=== PATIENT | female | born 1990 | race African-American/Black ===

== ENCOUNTER 2018-11-21 05:34 | Observation (INO) | payer OTHER ==
[2016-12-15 07:00] VITALS: BP 131/77
[~2018-11-21] VITALS: Ht 149.9 cm; Wt 100.7 kg
[2018-11-21 06:03] LABS: BILIRUBIN,URINE NEGATIVE (NEG); CLARITY,URINE CLEAR; COLOR,URINE YELLOW; NITRITE,URINE NEGATIVE (NEG); PH,URINE 7.5; PROTEIN,URINE NEGATIVE (NEG-TRACE)
[2018-11-21 06:09] LABS: BARBITURATES NEG (NEG); BENZODIAZEPINES NEG (NEG); CANNABINOIDS NEG (NEG); COCAINE NEG (NEG); METHADONE NEG (NEG); OPIATES NEG (NEG); PHENCYCLIDINE NEG (NEG)
[2018-11-21 06:11] LABS: BACTERIA,URINE FEW /HPF (0-FEW); RBC,URINE TNTC /HPF (0-2); SQUAMOUS EPITHELIAL CELL,UR MANY /LPF
[2018-11-21 06:12] LABS: AMPHETAMINE/METHAMPHETAMINE NEG (NEG)
[2018-11-21] MEDS: IV RINGERS,LACTATED 1000ML 1,000 ML IV SCH ×2 (06:21→08:08)
[2018-11-21 06:48] LABS: BASO % 0 % (0-3); EOS # 0.1 x10^3/uL (0.0-0.7); EOS % 1 % (0-3); HEMATOCRIT 28.5 % (36.0-47.0); HEMOGLOBIN 9.3 g/dL (12.0-15.5); LYMPH # 1.1 x10^3/uL (1.0-4.8); LYMPH % 12 % (24-48); MEAN CORPUSCULAR HEMOGLOBIN 26 pg (25-35); MEAN CORPUSCULAR HGB CONC 33 g/dL (31-37); MEAN CORPUSCULAR VOLUME 81 fL (79-100); MONO # 0.7 x10^3/uL (0.0-1.1); MONO % 8 % (0-9); NEUT % 78 % (31-73); PLATELET COUNT 234 x10^3/uL (140-400); RED BLOOD COUNT 3.52 x10^6/uL (3.50-5.40); RED CELL DISTRIBUTION WIDTH 14.8 % (11.5-14.5); WHITE BLOOD COUNT 8.9 x10^3/uL (4.0-11.0)
[2018-11-21 06:55] LABS: CALCIUM 8.4 mg/dL (8.5-10.1); CREATININE 0.8 mg/dL (0.6-1.0); GFR 101.9; POTASSIUM 3.5 mmol/L (3.5-5.1)
[2018-11-21] MEDS ORDERED: hydrOXYzine PAMOATE 25 MG CAPSULE PO ONE (07:00)
[2018-11-21 07:01] LABS: ALBUMIN 2.5 g/dL (3.4-5.0); ALBUMIN/GLOBULIN RATIO 0.6 (1.0-1.7); TOTAL BILIRUBIN 0.4 mg/dL (0.2-1.0); TOTAL PROTEIN 6.4 g/dL (6.4-8.2)
[2018-11-21] MEDS ORDERED: PANTOPRAZOLE 40 MG TABLET.DR. PO ONE (08:00)
[2018-11-21] MEDS ORDERED: HYDROcodone/APAP 5/325MG 1 TAB TABLET PO PRN ×3 (08:00→09:15)
--- NOTE | 2018-11-21 08:14 | RAD ---
RENAL COMPLETE BILATERAL History: Left flank and abdominal pain, back pain, Comparison: None. Findings: Multiple sonographic images of the kidneys and retroperitoneal structures are submitted. Right kidney measured 13.2 x 7 x 5.3 cm, no hydronephrosis. Left kidney measured 13.3 x 6 x 8.5 cm, mild left hydronephrosis. No obvious abnormality is demonstrated of the gallbladder. Incidental note is made of a dilated gallbladder up to 11 cm in longitudinal dimension. There is a large gallstone closer to the gallbladder neck about 2.1 m in size. Impression: 1. There is mild left hydronephrosis. 2. There is large gallstone near the gallbladder neck, somewhat dilated gallbladder. Electronically signed by: Keith Jaimes MD (11/21/2018 8:11 AM) [facility]
[2018-11-21] MEDS ORDERED: fentaNYL PF VIAL 100 MCG/2 ML VIAL IV ONE (09:00)
--- NOTE | 2018-11-21 09:09 | PDOC2 ---
GIAN HERMAN Santhosh [employer] 11/21/18 0909: CONSULT Date of Consult Date of Consult DATE: 11/21/18 TIME: 09:06 Reason for Consult Reason for Consult: gallstones Referring Physician Referring Physician: Dr Jurado Identification/Chief Complaint Chief Complaint abdominal pain Source Source: Chart review, Patient History of Present Illness Reason for Visit: 1 week hx of abdominal pain, upper abdomen, wraps to left flank. Has been worsening over the week. Associated nausea. No similar symptoms in past 32 weeks Past Medical History Cardiovascular: No pertinent hx Pulmonary: No pertinent hx GI: No pertinent hx Heme/Onc: No pertinent hx Hepatobiliary: No pertinent hx Psych: No pertinent hx Rheumatologic: No pertinent hx Infectious disease: No pertinent hx Renal/: No pertinent hx Endocrine: No pertinent hx Past Surgical History Past Surgical History: Family History Family History: Hypertension Social History No ALCOHOL: none Drugs: None Lives: Alone Current Medications Current Medications Current Medications Ringer's Solution 1,000 ml @ 125 mls/hr Q8H IV Last administered on 11/21/18at 08:08; Start 11/21/18 at 06:00 Hydroxyzine Pamoate (Vistaril) 50 mg 1X ONCE PO Last administered on 11/21/18at 06:44; Start 11/21/18 at 07:00; Stop 11/21/18 at 07:01; Status DC Pantoprazole Sodium (Protonix) 40 mg 1X ONCE PO Last administered on 11/21/18at 08:19; Start 11/21/18 at 08:00; Stop 11/21/18 at 08:10; Status DC Acetaminophen/ Hydrocodone Bitart (Lortab 5/325) 1 tab PRN Q6HRS PRN PO MODERATE PAIN Last administered on 11/21/18at 08:14; Start 11/21/18 at 08:00; Stop 11/21/18 at 08:55; Status DC Acetaminophen/ Hydrocodone Bitart (Lortab 5/325) Give as directed PRN Q6HRS PRN PO MODERATE PAIN; Start 11/21/18 at 09:00; Status UNV Fentanyl Citrate (Fentanyl 2ml Vial) 50 mcg 1X ONCE IV ; Start 11/21/18 at 09:00; Stop 11/21/18 at 09:01 Active Scripts Active No Active Prescriptions or Reported Medications Allergies Allergies: Coded Allergies: No Known Drug Allergies (Unverified , 12/12/16) ROS General: YES: Appetite (loss); No: Chills, Other (fevers) PSYCHOLOGICAL ROS: No: Anxiety, Depression Eyes: No Blurry vision, No Double vision HEENT: No: Heacaches, Sore Throat Hematological and Lymphatic: No: Bleeding Problems, Blood Clots Respiratory: No: Cough, Shortness of breath Cardiovascular: No Chest Pain, No Palpitations Gastrointestinal: Yes Other (see hpi) Genitourinary: No Dysuria, No Hematuria Musculoskeletal: No Joint Pain, No Muscle Pain Neurological: No Confusion, No Numbness/Tingling Skin: No Mole Changes, No Pruritus Physical Exam General: Alert, Oriented X3, Cooperative, No acute distress HEENT: PERRLA, Mucous membr. moist/pink Lungs: Clear to auscultation, Normal air movement Heart: Regular rate, Normal S1, Normal S2, No murmurs Abdomen: Soft, Other ( abdomen) Extremities: No clubbing, No cyanosis Skin: No rashes, No breakdown Neuro: Normal gait, Normal speech Psych/Mental Status: Mental status NL, Mood NL MUSCULOSKELETAL: No deformity, No swelling Vitals VITALS Vital Signs Date Time Temp Pulse Resp B/P (MAP) Pulse Ox O2 Delivery O2 Flow Rate FiO2 11/21/18 08:14 20 Room Air Labs Labs Laboratory Tests Test 11/21/18 05:55 11/21/18 06:40 Urine Collection Type Unknown Urine Color Yellow Urine Clarity Clear Urine pH 7.5 Urine Specific Trinity 1.025 Urine Protein Negative mg/dL (NEG-TRACE) Urine Glucose (UA) Negative mg/dL (NEG) Urine Ketones (Stick) Negative mg/dL (NEG) Urine Blood Moderate (NEG) Urine Nitrite Negative (NEG) Urine Bilirubin Negative (NEG) Urine Urobilinogen Dipstick 2.0 mg/dL (0.2 mg/dL) Urine Leukocyte Esterase Negative (NEG) Urine RBC Tntc /HPF (0-2) Urine WBC 1-4 /HPF (0-4) Urine Squamous Epithelial Cells Many /LPF Urine Bacteria Few /HPF (0-FEW) Urine Mucus Marked /LPF Urine Opiates Screen Neg (NEG) Urine Methadone Screen Neg (NEG) Urine Barbiturates Neg (NEG) Urine Phencyclidine Screen Neg (NEG) Urine Amphetamine/Methamphetamine Neg (NEG) Urine Benzodiazepines Screen Neg (NEG) Urine Cocaine Screen Neg (NEG) Urine Cannabinoids Screen Neg (NEG) Urine Ethyl Alcohol Neg (NEG) White Blood Count 8.9 x10^3/uL (4.0-11.0) Red Blood Count 3.52 x10^6/uL (3.50-5.40) Hemoglobin 9.3 g/dL (12.0-15.5) Hematocrit 28.5 % (36.0-47.0) Mean Corpuscular Volume 81 fL (79-100) Mean Corpuscular Hemoglobin 26 pg (25-35) Mean Corpuscular Hemoglobin Concent 33 g/dL (31-37) Red Cell Distribution Width 14.8 % (11.5-14.5) Platelet Count 234 x10^3/uL (140-400) Neutrophils (%) (Auto) 78 % (31-73) Lymphocytes (%) (Auto) 12 % (24-48) Monocytes (%) (Auto) 8 % (0-9) Eosinophils (%) (Auto) 1 % (0-3) Basophils (%) (Auto) 0 % (0-3) Neutrophils # (Auto) 7.0 x10^3uL (1.8-7.7) Lymphocytes # (Auto) 1.1 x10^3/uL (1.0-4.8) Monocytes # (Auto) 0.7 x10^3/uL (0.0-1.1) Eosinophils # (Auto) 0.1 x10^3/uL (0.0-0.7) Basophils # (Auto) 0.0 x10^3/uL (0.0-0.2) Sodium Level 137 mmol/L (136-145) Potassium Level 3.5 mmol/L (3.5-5.1) Chloride Level 103 mmol/L (98-107) Carbon Dioxide Level 24 mmol/L (21-32) Anion Gap 10 (6-14) Blood Urea Nitrogen 5 mg/dL (7-20) Creatinine 0.8 mg/dL (0.6-1.0) Estimated GFR (Cockcroft-Gault) 101.9 BUN/Creatinine Ratio 6 (6-20) Glucose Level 91 mg/dL (70-99) Calcium Level 8.4 mg/dL (8.5-10.1) Total Bilirubin 0.4 mg/dL (0.2-1.0) Aspartate Amino Transf (AST/SGOT) 25 U/L (15-37) Alanine Aminotransferase (ALT/SGPT) 31 U/L (14-59) Alkaline Phosphatase 99 U/L (46-116) Total Protein 6.4 g/dL (6.4-8.2) Albumin 2.5 g/dL (3.4-5.0) Albumin/Globulin Ratio 0.6 (1.0-1.7) Laboratory Tests Test 11/21/18 05:55 11/21/18 06:40 Urine Collection Type Unknown Urine Color Yellow Urine Clarity Clear Urine pH 7.5 Urine Specific Trinity 1.025 Urine Protein Negative mg/dL (NEG-TRACE) Urine Glucose (UA) Negative mg/dL (NEG) Urine Ketones (Stick) Negative mg/dL (NEG) Urine Blood Moderate (NEG) Urine Nitrite Negative (NEG) Urine Bilirubin Negative (NEG) Urine Urobilinogen Dipstick 2.0 mg/dL (0.2 mg/dL) Urine Leukocyte Esterase Negative (NEG) Urine RBC Tntc /HPF (0-2) Urine WBC 1-4 /HPF (0-4) Urine Squamous Epithelial Cells Many /LPF Urine Bacteria Few /HPF (0-FEW) Urine Mucus Marked /LPF Urine Opiates Screen Neg (NEG) Urine Methadone Screen Neg (NEG) Urine Barbiturates Neg (NEG) Urine Phencyclidine Screen Neg (NEG) Urine Amphetamine/Methamphetamine Neg (NEG) Urine Benzodiazepines Screen Neg (NEG) Urine Cocaine Screen Neg (NEG) Urine Cannabinoids Screen Neg (NEG) Urine Ethyl Alcohol Neg (NEG) White Blood Count 8.9 x10^3/uL (4.0-11.0) Red Blood Count 3.52 x10^6/uL (3.50-5.40) Hemoglobin 9.3 g/dL (12.0-15.5) Hematocrit 28.5 % (36.0-47.0) Mean Corpuscular Volume 81 fL (79-100) Mean Corpuscular Hemoglobin 26 pg (25-35) Mean Corpuscular Hemoglobin Concent 33 g/dL (31-37) Red Cell Distribution Width 14.8 % (11.5-14.5) Platelet Count 234 x10^3/uL (140-400) Neutrophils (%) (Auto) 78 % (31-73) Lymphocytes (%) (Auto) 12 % (24-48) Monocytes (%) (Auto) 8 % (0-9) Eosinophils (%) (Auto) 1 % (0-3) Basophils (%) (Auto) 0 % (0-3) Neutrophils # (Auto) 7.0 x10^3uL (1.8-7.7) Lymphocytes # (Auto) 1.1 x10^3/uL (1.0-4.8) Monocytes # (Auto) 0.7 x10^3/uL (0.0-1.1) Eosinophils # (Auto) 0.1 x10^3/uL (0.0-0.7) Basophils # (Auto) 0.0 x10^3/uL (0.0-0.2) Sodium Level 137 mmol/L (136-145) Potassium Level 3.5 mmol/L (3.5-5.1) Chloride Level 103 mmol/L (98-107) Carbon Dioxide Level 24 mmol/L (21-32) Anion Gap 10 (6-14) Blood Urea Nitrogen 5 mg/dL (7-20) Creatinine 0.8 mg/dL (0.6-1.0) Estimated GFR (Cockcroft-Gault) 101.9 BUN/Creatinine Ratio 6 (6-20) Glucose Level 91 mg/dL (70-99) Calcium Level 8.4 mg/dL (8.5-10.1) Total Bilirubin 0.4 mg/dL (0.2-1.0) Aspartate Amino Transf (AST/SGOT) 25 U/L (15-37) Alanine Aminotransferase (ALT/SGPT) 31 U/L (14-59) Alkaline Phosphatase 99 U/L (46-116) Total Protein 6.4 g/dL (6.4-8.2) Albumin 2.5 g/dL (3.4-5.0) Albumin/Globulin Ratio 0.6 (1.0-1.7) Assessment/Plan Assessment/Plan cholelithiasis, no signs of cholecystitis in 32 week female discussed low fat diet, pain, and nausea management conservative measures until after CHAPIS MORILLO MD 11/21/18 1023: CONSULT Assessment/Plan Assessment/Plan Pt seen and examined. Agree with ms. Herman's note Pt with c/o epigastric, radiating to her back, pain, no N/V, husam clears. Pain is improved abd soft, gravid, NTTP given third trimester and no obvious complicating features, favor completing with elective laparoscopic cholecystectomy She is encouraged to f/u pending . Thanks for consult! GIAN HERMAN APRN Nov 21, 2018 09:09 CHAPIS MROILLO MD Nov 21, 2018 10:23
== END 2018-11-21 14:30 | disposition home or self-care (01) ==
LOC: 3 SO LND 05:34
PROVIDERS: ADMIT Obstetrics & Gynecology; ATTEND Obstetrics & Gynecology
DX: O26.893 Other specified pregnancy related conditions, third trimester (principal); R10.9 Unspecified abdominal pain; O99.89 Other specified diseases and conditions complicating pregnancy, childbirth and the puerperium; M54.9 Dorsalgia, unspecified; Z3A.32 32 weeks gestation of pregnancy
CPT/HCPCS: 36415; 76770; 80053; 80307; 81001; 85025; 96374; G0378; G0379; J3010; J7120; Q0177

== ENCOUNTER → 2018-12-03 | Outpatient (CLI) | payer OTHER ==
[2016-12-15 07:00] VITALS: BP 131/77
--- NOTE | 2018-12-03 17:06 | KCIC ---
Examination: Obstetric ultrasound greater than 14 weeks HISTORY: History of uterine size date discrepancy COMPARISON: 02/10/2015 FINDINGS: Single living intrauterine identified with heart rate of 145 bpm. Amniotic fluid index is 10.5 cm. The cervical length measures 4.3 cm. position is cephalic. Biparietal diameter measures 8.1 cm corresponding to 32 weeks and 6 days. Head circumference measures 30.3 cm corresponding to 33 weeks and 5 days. Abdominal circumference measures 28.3 cm corresponding to 32 weeks and 2 days. Femur length measures 6.4 cm corresponding to 33 weeks and 2 days. Cephalic index 81.3 Head circumference to abdominal circumference ratio 1.07 Femur length to biparietal diameter 78.9. Femur length to head circumference 21.3 Femur length abdominal circumference 22.8. Estimated weight 2056 g. Gestational age 33 weeks and 0 days. Expected date of delivery by ultrasound 01/21/2019. Given LMP 04/13/2018. Expected date of delivery by LMP 01/18/2019. IMPRESSION: Single living intrauterine with heart rate of 145 bpm. Dates as described above. Electronically signed by: Hugh Willis MD (12/03/2018 5:03 PM) [id number]
== END | disposition home or self-care (01) ==
LOC: KCIC US 15:12
PROVIDERS: ATTEND Obstetrics & Gynecology
DX: O26.843 Uterine size-date discrepancy, third trimester (principal); Z3A.33 33 weeks gestation of pregnancy
CPT/HCPCS: 76805

== ENCOUNTER 2018-12-05 18:43 | Observation (INO) | payer OTHER ==
[2016-12-15 07:00] VITALS: BP 131/77
[~2018-12-05] VITALS: Ht 149.9 cm; Wt 100.7 kg
[2018-12-05] MEDS ORDERED: ACETAMINOPHEN 500 MG TABLET PO PRN (19:00)
[2018-12-05] MEDS ORDERED: ONDANSETRON PF 4 MG/2 ML VIAL. IV PRN (19:00)
[2018-12-05] MEDS ORDERED: IV RINGERS,LACTATED 1000ML 1,000 ML IV SCH (19:00)
[2018-12-05 19:24] LABS: BILIRUBIN,URINE NEGATIVE (NEG); CLARITY,URINE CLEAR; COLOR,URINE YELLOW; NITRITE,URINE NEGATIVE (NEG); PROTEIN,URINE NEGATIVE (NEG-TRACE)
[2018-12-05 19:30] LABS: AMPHETAMINE/METHAMPHETAMINE NEG (NEG); BARBITURATES NEG (NEG); BENZODIAZEPINES NEG (NEG); CANNABINOIDS NEG (NEG); COCAINE NEG (NEG); METHADONE NEG (NEG); OPIATES NEG (NEG); PHENCYCLIDINE NEG (NEG)
[2018-12-05 19:31] LABS: SQUAMOUS EPITHELIAL CELL,UR FEW /LPF
[2018-12-05 19:32] LABS: BACTERIA,URINE 0 /HPF (0-FEW); RBC,URINE 20-40 /HPF (0-2)
[2018-12-05] MEDS ORDERED: IV DEXTROSE 5%-LACT RINGERS 1,000 ML IV SCH (20:00)
[2018-12-05] MEDS: oxyCODONE/APAP 5/325 1 TAB TABLET PO PRN (20:24)
[2018-12-05 21:32] LABS: BASO % 0 % (0-3); EOS # 0.1 x10^3/uL (0.0-0.7); EOS % 2 % (0-3); HEMATOCRIT 28.8 % (36.0-47.0); HEMOGLOBIN 9.5 g/dL (12.0-15.5); LYMPH # 1.4 x10^3/uL (1.0-4.8); LYMPH % 17 % (24-48); MEAN CORPUSCULAR HEMOGLOBIN 27 pg (25-35); MEAN CORPUSCULAR HGB CONC 33 g/dL (31-37); MEAN CORPUSCULAR VOLUME 80 fL (79-100); MONO # 0.6 x10^3/uL (0.0-1.1); MONO % 8 % (0-9); NEUT % 74 % (31-73); PLATELET COUNT 249 x10^3/uL (140-400); RED BLOOD COUNT 3.59 x10^6/uL (3.50-5.40); RED CELL DISTRIBUTION WIDTH 14.6 % (11.5-14.5); WHITE BLOOD COUNT 8.1 x10^3/uL (4.0-11.0)
[2018-12-05 21:47] LABS: ALBUMIN 2.3 g/dL (3.4-5.0); ALBUMIN/GLOBULIN RATIO 0.5 (1.0-1.7); CALCIUM 8.3 mg/dL (8.5-10.1); CREATININE 0.6 mg/dL (0.6-1.0); TOTAL BILIRUBIN 0.3 mg/dL (0.2-1.0)
[2018-12-05 21:48] LABS: POTASSIUM 2.7 mmol/L (3.5-5.1)
[2018-12-05] MEDS: POTASSIUM CL 20MEQ IN D5W 1,000 ML IV SCH (22:13)
[2018-12-05] MEDS ORDERED: POTASSIUM CHLORIDE 20 MEQ TABLET.ER. PO ONE (22:30)
[2018-12-05] MEDS ORDERED: ZOLPIDEM 5 MG TABLET. PO PRN (23:15)
[2018-12-06] MEDS: oxyCODONE/APAP 5/325 1 TAB TABLET PO PRN (02:38)
--- NOTE | 2018-12-06 07:39 | RAD ---
Indication: 34 weeks . Evaluate for gallstone. Upper abdominal pain TECHNIQUE: Grayscale, color Doppler and spectral waveform images of the abdomen COMPARISON: None IMPRESSION: Visualized pancreas is within normal limits. Pancreatic tail not visualized during bowel gas. IVC is within normal limits. Main portal vein is patent. Liver is mildly enlarged measuring 19.5 cm in longest dimension with normal echogenicity. Gallbladder is mildly distended with a gallstone in the gallbladder neck measuring 1.7 cm. There is mild gallbladder wall thickening measuring 4 mm. No pericholecystic fluid. CBD measures 5 mm in diameter and is top normal in size. Right kidney measures 13.6 cm in length without hydronephrosis. Spleen measures 11.5 cm in length and is normal in size. Left kidney measures 14 cm in length without hydronephrosis. IMPRESSION: Distended gallbladder with gallstone and mild gallbladder wall thickening. Findings are concerning for acute cholecystitis in appropriate clinical setting. HIDA scan may be obtained for confirmation. Electronically signed by: Wayne Larson DO (12/06/2018 7:36 AM) [facility]
[2018-12-06] MEDS ORDERED: HYDROcodone/APAP 5/325MG 1 TAB TABLET PO PRN (09:00)
[2018-12-06 09:34] LABS: BASO % 0 % (0-3); EOS # 0.2 x10^3/uL (0.0-0.7); EOS % 3 % (0-3); HEMATOCRIT 28.7 % (36.0-47.0); HEMOGLOBIN 9.4 g/dL (12.0-15.5); LYMPH # 1.7 x10^3/uL (1.0-4.8); LYMPH % 25 % (24-48); MEAN CORPUSCULAR HEMOGLOBIN 26 pg (25-35); MEAN CORPUSCULAR HGB CONC 33 g/dL (31-37); MEAN CORPUSCULAR VOLUME 81 fL (79-100); MONO # 0.5 x10^3/uL (0.0-1.1); MONO % 7 % (0-9); NEUT # 4.4 x10^3/uL (1.8-7.7); NEUT % 65 % (31-73); PLATELET COUNT 221 x10^3/uL (140-400); RED BLOOD COUNT 3.56 x10^6/uL (3.50-5.40); RED CELL DISTRIBUTION WIDTH 15.1 % (11.5-14.5); WHITE BLOOD COUNT 6.8 x10^3/uL (4.0-11.0)
[2018-12-06] MEDS: POTASSIUM CL 20MEQ IN D5W 1,000 ML IV SCH (09:45)
[2018-12-06 09:56] LABS: ALBUMIN 2.2 g/dL (3.4-5.0); ALBUMIN/GLOBULIN RATIO 0.5 (1.0-1.7); CALCIUM 8.2 mg/dL (8.5-10.1); CREATININE 0.5 mg/dL (0.6-1.0); GFR 175.3; POTASSIUM 3.2 mmol/L (3.5-5.1); TOTAL BILIRUBIN 0.4 mg/dL (0.2-1.0); TOTAL PROTEIN 6.5 g/dL (6.4-8.2)
[2018-12-06 10:19] LABS: AMYLASE 48 U/L (25-115); LIPASE 87 U/L (73-393)
--- NOTE | 2018-12-06 13:04 | PDOC1 ---
OB - History Hx of Present Care: Good Care Ultrasounds: Normal mid trimester US Obstetrical Complications: Other (GBD) Past Family/Social History * Past Medical, Surgical, Family and Obstetric Histories reviewed from chart. Rubella: Immune RPR/VDRL: Negative HBsAG: Negative OB - Chief Complaint & HPI Date of Admission: Date of Admission: Dec 05, 2018 at 18:43 Chief Complaint/History : 5 Para: 4 EDC: Dec 16, 2018 Reason for admission: other (GBD) Admission Nurse Assessment Rev: Yes OB - Admission Exam Physical Exam Vitals: VS - Last 72 Hours, by Label Date Time Temp Pulse Resp B/P (MAP) Pulse Ox O2 Delivery O2 Flow Rate FiO2 12/06/18 09:45 18 Room Air 12/06/18 02:38 20 Room Air 12/05/18 20:24 20 Room Air HEENT: Normal, Nasal Mucosa Normal, Oropharynx Normal, Moist Membranes, Fontanelles Normal Heart: Regular Rate Lungs: Clear, Equal Abdomen: Gravid Extremities: Normal Pulses, No tenderness or swelling Cervical Dilatation: None Effacement: 0% Station: Ballotable Membranes: Intact Contractions on Admission: None Assessment/Plan Assessment/Plan 34 week IUP GBD IV hydration and pain control PRUDENCE ROMERO MD Dec 06, 2018 13:04
== END 2018-12-06 13:09 | disposition home or self-care (01) ==
LOC: 3 SO LND 18:43
PROVIDERS: ADMIT Obstetrics & Gynecology; ATTEND Obstetrics & Gynecology
DX: O21.2 Late vomiting of pregnancy (principal); O26.893 Other specified pregnancy related conditions, third trimester; R10.9 Unspecified abdominal pain; O99.613 Diseases of the digestive system complicating pregnancy, third trimester; N21.0 Calculus in bladder; O99.89 Other specified diseases and conditions complicating pregnancy, childbirth and the puerperium; M54.9 Dorsalgia, unspecified; Z3A.34 34 weeks gestation of pregnancy
CPT/HCPCS: 36415; 76700; 80053; 80307; 81001; 82150; 83690; 85025; 96360; 96361; G0378; G0379; J7042

== ENCOUNTER 2018-12-15 21:59 | Observation (INO) | payer OTHER ==
[2016-12-15 07:00] VITALS: BP 131/77
[2018-12-15 23:30] LABS: BILIRUBIN,URINE NEGATIVE (NEG); CLARITY,URINE CLEAR; COLOR,URINE YELLOW; NITRITE,URINE NEGATIVE (NEG); PROTEIN,URINE NEGATIVE (NEG-TRACE); UROBILINOGEN,URINE 0.2 mg/dL (0.2 mg/dL)
[2018-12-15] MEDS ORDERED: IV RINGERS,LACTATED 1000ML 1,000 ML IV SCH (23:30)
[2018-12-15 23:36] LABS: BACTERIA,URINE FEW /HPF (0-FEW); RBC,URINE 0 /HPF (0-2); SQUAMOUS EPITHELIAL CELL,UR MOD /LPF; WBC,URINE OCC /HPF (0-4)
[2018-12-15 23:37] LABS: BARBITURATES NEG (NEG); BENZODIAZEPINES NEG (NEG); CANNABINOIDS NEG (NEG); COCAINE NEG (NEG); METHADONE NEG (NEG); OPIATES NEG (NEG); PHENCYCLIDINE NEG (NEG)
[2018-12-15 23:38] LABS: AMPHETAMINE/METHAMPHETAMINE NEG (NEG)
[2018-12-15] MEDS ORDERED: ACETAMINOPHEN 500 MG TABLET PO PRN (23:45)
[2018-12-15] MEDS ORDERED: ZOLPIDEM 5 MG TABLET. PO PRN (23:45)
[2018-12-16 01:31] LABS: AMNIO PT NEGATIVE
[2018-12-16 01:50] LABS: CALCIUM 8.9 mg/dL (8.5-10.1); CREATININE 0.5 mg/dL (0.6-1.0); GFR 175.3; POTASSIUM 3.5 mmol/L (3.5-5.1)
[2018-12-16 01:56] LABS: ALBUMIN 2.6 g/dL (3.4-5.0); ALBUMIN/GLOBULIN RATIO 0.5 (1.0-1.7); TOTAL BILIRUBIN 0.4 mg/dL (0.2-1.0); TOTAL PROTEIN 7.4 g/dL (6.4-8.2)
[2018-12-16] MEDS ORDERED: oxyCODONE/APAP 5/325 1 TAB TABLET PO ONE (09:15)
--- NOTE | 2018-12-16 12:49 | RAD ---
Clinical indications: Vaginal bleeding. COMPARISON: December 03, 2018. Findings: A single intrauterine fetus is seen in cephalic position. heart rate is 155 beats per minute. BPD is 9.21 cm which equals 37 weeks 3 days. HC is 32.42 cm which equals 36 weeks 5 days. AC is 29.30 cm which equals 33 weeks 2 days. FL is 6.66 cm which equals 34 weeks 2 days. Average gestational age by ultrasound is 35 weeks 3 days +/- 3 weeks with an EDC of January 17, 2019. EDC by previous ultrasound was January 25, 2019. Estimated weight is 5 lbs and 5 oz. The anatomy was not evaluated. LARISSA using the four quadrant method is 9.8 cm. Cervical length-not visualized A grade 1 posterior placenta is seen. No placenta previa and no placenta abruptio is identified. The anterior wall of the lower uterine segment measures anywhere from 5.3 mm to 7.2 mm in thickness. This is normal. The maternal ovaries are not visualized. IMPRESSION: Single IUP in cephalic presentation with approximate gestational age of 35 weeks 3 days. Abdominal circumference is lagging behind the other growth parameters but still within normal range limits although on the low side of normal. Cervix is not visualized. If clinically needed, transvaginal and transperineal sonography may be helpful for further evaluation. Electronically signed by: Delgado Lebron MD (12/16/2018 12:46 PM) [facility]
== END 2018-12-16 11:00 | disposition home or self-care (01) ==
LOC: 3 SO LND 23:07
PROVIDERS: ADMIT Specialist; ATTEND Specialist
DX: O46.93 Antepartum hemorrhage, unspecified, third trimester (principal); O62.9 Abnormality of forces of labor, unspecified; Z3A.35 35 weeks gestation of pregnancy
CPT/HCPCS: 36415; 76815; 80053; 80307; 81001; 84112; G0378; G0379